=== PATIENT | female | born 2000 | race African-American/Black ===

== ENCOUNTER 2023-04-27 08:54 | Emergency (ER) | payer MEDICAID, SELFPAY ==
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
[2023-04-27 09:11] VITALS: BP 139/94; PULSE 90; RESP 18; TEMP 36; O2SAT 99; BMI 35.3
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
== END 2023-04-27 12:51 | disposition home or self-care (01) ==
PROVIDERS: Emergency Provider Emergency Medicine Emergency Medical Services
DX: S83.92XA Sprain of unspecified site of left knee, initial encounter (principal); V43.54XA Car driver injured in collision with van in traffic accident, initial encounter; Y93.89 Activity, other specified; Y92.410 Unspecified street and highway as the place of occurrence of the external cause; Y99.9 Unspecified external cause status
CPT/HCPCS: 73564; 99283